=== PATIENT | female | born 1955 | race Caucasian/White ===

== ENCOUNTER 2025-05-19 09:08 | Inpatient (IN) | payer OTHER ==
[~2025-05-19] VITALS: Ht 167.6 cm; Wt 72.7 kg
[2025-05-19 09:31] LABS: Hematocrit 39.6 % (36.0-46.0); Hemoglobin 13.5 g/dL (12.2-16.2); Mean Corpuscular Hemoglobin 30.0 pg (28.0-32.0); Mean Corpuscular Volume 87.8 fL (80.0-100.0); Nucleated Red Blood Cells % 0.0 %
[2025-05-19 09:41] LABS: Potassium 3.8 mmol/L (3.5-5.1); Sodium 144 mmol/L (136-145)
[2025-05-19 09:42] LABS: Carbon Dioxide 29 mmol/L (20-31)
[2025-05-19 09:43] LABS: Calcium 9.5 mg/dL (8.7-10.4)
[2025-05-19 09:47] LABS: BUN/Creatinine Ratio 15.1 (10.0-20.0); Blood Urea Nitrogen 14 mg/dL (9-23); Glucose 86 mg/dL (74-106)
[2025-05-19 09:54] LABS: Anion Gap 9 (5-15); Chloride 106 mmol/L (98-107)
--- NOTE | 2025-05-19 09:54 | ED.PDOC ---
HPI Comments 69 year old female with PMHx HTN presents to the ED with a chief complaint of chest pain onset 2 days. Patient states she has been experiencing intermittent, LT sided, non-radiating chest pain, described as a dull pain. Patient states she had stress test done about 5 years ago, was negative, has not seen Chemistry Specialist. Patient checked BP at home, was elevated, came to ED. Upon ED arrival AMIRAH was 165/96. Denies fever, chills, nausea, vomiting, diarrhea, abdominal pain, short ness of breath, headache, dizziness, blurred vision, numbness/tingling. No other symptoms or modifying factors present at this time. Chief Complaint: Chest Pain Time Seen by MD: 09:35 Reviewed Notes: Medications, Allergies Allergies: Coded Allergies: Latex (Verified Allergy, Unknown, 05/19/25) Sulfa Drugs (Verified Adverse Reaction, Unknown, 10/11/09) Information Source: Patient Mode of Arrival: Ambulatory Severity: Moderate Timing: Days Duration: Since onset Prehospital treatment: None Location: Chest (L) Radiation: No Radiation Quality: Other (dull) Onset: At Rest Cardiac Risk Factors: HTN PE Risk Factors: None History of: None Modifying Factors: Nothing Past Medical History PAST MEDICAL HISTORY: HTN Surgical History: Denies all surgeries ADJUSTER AND INSPECTOR History: No Pertinent ADJUSTER AND INSPECTOR History Family History Family History: Reviewed,noncontributory to illness, No family hx of Cancer, No family hx of DM, No family hx of Heart cassie, No family hx of HTN, No family hx ofKidney cassie, No family hx of Liver cassie, No family hx of Lung cassie, No family hx of Stroke Social History Smoker: Non-Smoker Alcohol: Denies ETOH Use Drugs: Denies Drug Use Lives In: Home Constitutional: denies: chills, diaphoresis, fatigue, fever, malaise, sweats, weakness, others EENTM: denies: blurred vision, double vision, ear bleeding, ear discharge, ear drainage, ear pain, ear ringing, eye pain, eye redness, hearing loss, mouth pain, mouth swelling, nasal discharge, nose bleeding, nose congestion, nose pain, photophobia, tearing, throat pain, throat swelling, voice changes, others Respiratory: reports: cough; denies: hemoptysis, orthopnea, SOB at rest, shortness of breath, SOB with excertion, stridor, wheezing, others Cardiovascular: reports: chest pain, others (hypertension); denies: dizzy spells, diaphoresis, Dyspnea on exertion, edema, irregular heart beat, left arm pain, lightheadedness, palpitations, PND, syncope Gastrointestinal: denies: abdomen distended, abdominal pain, blood streaked bowels, constipated, diarrhea, dysphagia, difficulty swallowing, hematemesis, melena, nausea, poor appetite, poor fluid intake, rectal bleeding, rectal pain, vomiting, others Neurological: denies: dizziness, fainting, headache, left sided numbness, left sided weakness, numbness, paresthesia, pre-existing deficit, right sided numbness, right sided weakness, seizure, speech problems, tingling, tremors, weakness, others Musculoskeletal: denies: back pain, gout, joint pain, joint swelling, muscle pain, muscle stiffness, neck pain, others Integumetry: denies: bruises, change in color, change in hair/nails, dryness, laceration, lesions, lumps, rash, wounds, others Allergic/Immunocompromised: denies: Difficulty Healing, Frequent Infections, Hives, Itching, others Hematologic/Lymphatic: denies: anemia, blood clots, easy bleeding, easy bruising, swollen glands, others Endocrine: denies: excessive hunger, excessive sweating, excessive thirst, excessive urination, flushing, intolerance to cold, intolerance to heat, unexplained weight gain, unexplained weight loss, others Psychiatric: denies: anxiety, bipolar disorder, depression, hopeless, panic disorder, schizophrenia, sleepless, suicidal, others All Other Systems: Reviewed and Negative Physical Exam General Appearance: Normal HEENT: Normal ENT Inspection, Pharynx Normal, TMs Normal Neck: Full Range of Motion, Non-Tender, Normal, Normal Inspection Respiratory: Chest Non-Tender, Lungs Clear, No Accessory Muscle Use, No Respiratory Distress, Normal Breath Sounds Cardiovascular: No Edema, No JVD, No Murmur, No Gallop, Normal Peripheral Pulses, Regular Rate/Rhythm Breast Exam: Deferred Gastrointestinal: No Organomegaly, Non Tender, No Pulsatile Mass, Normal Bowel Sounds, Soft Genitalia: Deferred Pelvic: Deferred Rectal: Deferred Extremities: No calf tenderness, Normal capillary refill, Normal inspection, Normal range of motion, Non-tender, No pedal edema Musculoskeletal : Apperance: Normal Neurologic: Alert, cable swager II-XII nml as Tested, No Motor Deficits, Normal Affect, Normal Mood, No Sensory Deficits Cerebellar Function: Normal Reflexes: Normal Skin: Dry, Normal Color, Warm Lymphatic: No Adenopathy Was a procedure done? Was a procedure done?: No X-Ray, Labs, Meds, VS Vital Signs Date Time Temp Pulse Resp B/P (MAP) Pulse Ox O2 Delivery O2 Flow Rate FiO2 05/19/25 10:04 55 05/19/25 09:15 61 05/19/25 09:14 97.5 71 18 165/96 97 97.5 Lab Test 05/19/25 09:20 Range/Units White Blood Count 4.4 4.4-10.8 10^3/uL Red Blood Count 4.51 4.0-5.20 10^6/uL Hemoglobin 13.5 12.2-16.2 g/dL Hematocrit 39.6 36.0-46.0 % Mean Corpuscular Volume 87.8 80.0-100.0 fL Mean Corpuscular Hemoglobin 30.0 28.0-32.0 pg Mean Corpuscular Hemoglobin Concent 34.1 32.0-36.0 g/dL Red Cell Distribution Width 13.2 11.8-14.3 % Platelet Count 253 140-450 10^3/uL Mean Platelet Volume 8.1 6.9-10.8 fL Neutrophils (%) (Auto) 47.7 37.0-80.0 % Lymphocytes (%) (Auto) 42.7 10.0-50.0 % Monocytes (%) (Auto) 7.4 0.0-12.0 % Eosinophils (%) (Auto) 0.9 0.0-7.0 % Basophils (%) (Auto) 1.3 0.0-2.0 % Neutrophils # (Auto) 2.1 1.6-8.6 10 ^3/uL Lymphocytes # (Auto) 1.9 0.4-5.4 10 ^3/uL Monocytes # (Auto) 0.3 0-1.3 10 ^3/uL Eosinophils # (Auto) 0 0-0.8 10 ^3/uL Basophils # (Auto) 0.1 0-0.2 10 ^3/uL Nucleated Red Blood Cells 0.0 % Sodium Level 144 136-145 mmol/L Potassium Level 3.8 3.5-5.1 mmol/L Chloride Level 106 98-107 mmol/L Carbon Dioxide Level 29 20-31 mmol/L Anion Gap 9 5-15 Blood Urea Nitrogen 14 9-23 mg/dL Creatinine 0.93 0.550-1.02 mg/dL Glomerular Filtration Rate Calc 67 >90 mL/min BUN/Creatinine Ratio 15.1 10.0-20.0 Serum Glucose 86 74-106 mg/dL Calcium Level 9.5 8.7-10.4 mg/dL Troponin I High Sensitivity 5 </=34 ng/L [place] [address] Ph: [phone] DIAGNOSTIC IMAGING Diagnostic Imaging Report : [id number] Signed PATIENT: REINA REY ACCT: [id number] UNIT: [id number] : 1955 LOC: ER ROOM / BED: / AGE / SEX: 69 / F ADM STATUS: REG ER SERVICE 8 ORDERING PHYSICIAN: FAUSTINA TOBIAS MD PROCEDURE(s): CXRP - CHEST PORTABLE REASON: cp ORDER NUMBER(s): [id number], ACCESSION NUMBER(s): [id number] EXAM: XY CHEST PORTABLE Indication: cp Technique: Single frontal view of the chest was obtained Comparison: None FINDINGS: Lines and Tubes: None Lungs: No focal consolidation. Pleura: No effusion. No pneumothorax. Cardiomediastinal contours: Unremarkable Bones: No acute osseous abnormality. IMPRESSION: No acute cardiopulmonary disease. ATED BY: RAGHU ROQUE MD DICTATED DATE/TIME: 05/19/251011 SIGNED BY: RAGHU ROQUE MD SIGNED DATE/TIME: 05/19/251011 CC: Time of 1ST Reevaluation: 10:05 Reevaluation 1ST: Unchanged Patient Education/Counseling: Diagnosis, Treatment, Prognosis Family Education/Counseling: No Family Present SEPSIS Sepsis Screen Date sepsis recognized/suspect: May 19, 2025 Time Sepsis recognized/suspect: 0910 Recent Procedure: No On Antibiotic Therapy: No Respiratory Rate >20: No Heart Rate >90: No Temp<36 C (96.8 F) or >38.3 C: No SBP <90 or MAP <65 mmHG: No New Acute Mental Status Change: No Is the patient on CPAP, BIPAP,: No Physician Orders Electrocardigram (05/19/25 09:10) Electrocardigram (05/19/25 10:10) Electrocardigram (05/19/25 12:10) Troponin-I Hs (05/19/25 10:10) Troponin-I Hs (05/19/25 12:10) Chest Portable (05/19/25 09:19) Vital Signs Date Time Temp Pulse Resp B/P (MAP) Pulse Ox O2 Delivery O2 Flow Rate FiO2 05/19/25 10:04 55 05/19/25 09:15 61 05/19/25 09:14 97.5 71 18 165/96 97 97.5 Laboratory Tests Test 05/19/25 09:20 White Blood Count 4.4 10^3/uL (4.4-10.8) Critical Care Note Critical Care Time?: No Stability Stability form required: No Heart Score Heart Score: Heart Score Response (Comments) Value History N/A 0 EKG N/A 0 Age N/A 0 Risk Factors N/A 0 Troponin N/A 0 Total 0 I personally scribed for FAUSTINA TOBIAS MD ([email or web address]) on 05/19/25 at 09:54. Electronically submitted by Zoya Abdul ([email or web address]). I personally scribed for FAUSTINA TOBIAS MD ([email or web address]) on 05/19/25 at 10:25. Electronically submitted by Zoya Abdul [email or web address]). FAUSTINA TOBIAS MD May 19, 2025 09:54
--- NOTE | 2025-05-19 10:15 | DVH ---
EXAM: XY CHEST PORTABLE Indication: cp Technique: Single frontal view of the chest was obtained Comparison: None FINDINGS: Lines and Tubes: None Lungs: No focal consolidation. Pleura: No effusion. No pneumothorax. Cardiomediastinal contours: Unremarkable Bones: No acute osseous abnormality. IMPRESSION: No acute cardiopulmonary disease.
[2025-05-19] MEDS ORDERED: DOCUSATE SOD 100 MG CAP PO PRN (14:45)
[2025-05-19] MEDS: SODIUM CHLORIDE 0.9% 1,000 ML IV SCH (14:45)
[2025-05-19] MEDS ORDERED: ONDANSETRON HCL 4 MG/2 ML VIAL IV PRN (14:45)
[2025-05-19] MEDS ORDERED: NITROGLYCERIN 0.4 MG SL TAB SL PRN (14:45)
[2025-05-19] MEDS ORDERED: MORPHINE SULFATE INJ 2 MG/ml SYRG IV PRN ×2 (14:45)
[2025-05-19] MEDS ORDERED: TEMAZEPAM 15 MG CAP PO PRN (14:45)
--- NOTE | 2025-05-19 15:16 | DVHHPRES ---
History of Present Illness Resident Creating Document: CHERELLE MANNING RESIDENT History of Present Illness Ms. Tejeda, a 69-year-old female with a history of CAD, MT s/p stent in 2009, hypertension, anxiety, depression, severe dyslipidemia presented to the ED with intermittent, left-sided, non-radiating dull chest pain that began two days ago. She has modifying factors and denies associated symptoms including fever, chills, nausea, vomiting, diarrhea, abdominal pain, shortness of breath, headache, dizziness, blurred vision, or neurological complaints. She notes a prior negative stress test five years ago and has not followed up with a skein winding operator since. On arrival, her blood pressure was 165/96. She has allergies to latex and sulfa drugs, no surgical history, and arrived ambulatory without prehospital treatment. Previously followed Dr. Parsons, last stress test 5 years ago at [place], not available for interpretation. Patient is under stress due to her is diagnosed with colon cancer. Past Medical History: HTN, CAD, Anxiety, Depression, Dyslipidemia on Repatha. Surgical History: Denies all surgeries ACIDIZER WATER WELL History: No Pertinent ACIDIZER WATER WELL History Social History: distant history of smoking, denies active smoking, drugs or alcohol use. lives at home with family. Review of Systems Constitutional: No: Fever, Chills, Sweats, Weakness, Malaise, Other Eyes: No: Pain, Vision change, Conjunctivae inflammation, Eyelid inflammation, Other, Redness ENT: No: Ear pain, Ear discharge, Nose pain, Nose discharge, Nose congestion, Mouth pain, Mouth swelling, Throat pain, Throat swelling, Other Respiratory: No: Cough, Dry, Shortness of breath, SOB with excertion, Wheezing, Hemoptysis, Pleuritic Pain, Sputum, Wheezing, Other Cardiovascular: Chest Pain Gastrointestinal: No: Nausea, Vomiting, Abdominal Pain, Diarrhea, Constipation, Melena, Hematochezia, Other Musculoskeletal: No: other, neck pain, shoulder pain, arm pain, back pain, hand pain, leg pain, foot pain Skin: No: Rash, Lesions, Jaundice, Bruising, Other Neurological: No: Weakness, Numbness, Incoordination, Change in speech, Co nfusion, Seizures, Other Allergies: Coded Allergies: Latex (Verified Allergy, Unknown, 05/19/25) Sulfa Drugs (Verified Adverse Reaction, Unknown, 10/11/09) Medications Current Medications Medications Dose Ordered Sig/Ping Route Start Time Stop Time Status Last Admin Dose Admin Sodium Chloride 1,000 ml @ 60 mls/hr [id number] IV 05/19/25 14:45 Temazepam 15 mg QHSP PRN PO 05/19/25 14:45 Ondansetron HCl 4 mg Q4HP PRN IV 05/19/25 14:45 Docusate Sodium 100 mg BIDPRN PRN PO 05/19/25 14:45 Acetaminophen 650 mg Q6HP PRN PO 05/19/25 14:45 Morphine Sulfate 2 mg Q4HPRN PRN IV 05/19/25 14:45 Enoxaparin Sodium 40 mg DAILY SC 05/19/25 14:45 Nitroglycerin 0.4 mg Q5MINP PRN SL 05/19/25 14:45 Morphine Sulfate 2 mg Q30M PRN IV 05/19/25 14:45 Bupropion HCl 100 mg DAILY PO 05/19/25 15:15 UNV Sertraline HCl 100 mg DAILY PO 05/19/25 15:15 UNV EZETIMIBE 10 mg DAILY PO 05/20/25 10:00 UNV Losartan Potassium 25 mg DAILY PO 05/20/25 10:00 UNV Exam Vital Signs Vital Signs Date Time Temp Pulse Resp B/P (MAP) Pulse Ox O2 Delivery O2 Flow Rate FiO2 05/19/25 12:56 97.5 66 16 144/93 (110) 98 97.5 General Appearance: Alert, Oriented X3, Cooperative, mild distress HEENT: Atraumatic, PERRLA, EOMI, Mucous membr. moist/pink Respiratory: Clear to auscultation, Normal air movement Cardiovascular: Regular rate, Normal S1, Normal S2, No murmurs Abdominal: Normal bowel sounds, Soft, No tenderness, No hepatospenomegaly, No masses Extremities: No clubbing, No cyanosis, No edema, Normal pulses, No tenderness/swelling Skin: No rashes, No breakdown, No significant lesion Neuro: Normal gait, Normal speech, Strength at 5/5 X4 ext, Normal tone, Sensation intact, Cranial nerves 3-12 NL, Reflexes 2+ Psych/Mental Status: Mental status NL, Mood NL Labs/Xrays Labs Test 05/19/25 13:01 05/19/25 09:20 Range/Units Troponin I High Sensitivity 4 </=34 ng/L White Blood Count 4.4 4.4-10.8 10^3/uL Red Blood Count 4.51 4.0-5.20 10^6/uL Hemoglobin 13.5 12.2-16.2 g/dL Hematocrit 39.6 36.0-46.0 % Mean Corpuscular Volume 87.8 80.0-100.0 fL Mean Corpuscular Hemoglobin 30.0 28.0-32.0 pg Mean Corpuscular Hemoglobin Concent 34.1 32.0-36.0 g/dL Red Cell Distribution Width 13.2 11.8-14.3 % Platelet Count 253 140-450 10^3/uL Mean Platelet Volume 8.1 6.9-10.8 fL Neutrophils (%) (Auto) 47.7 37.0-80.0 % Lymphocytes (%) (Auto) 42.7 10.0-50.0 % Monocytes (%) (Auto) 7.4 0.0-12.0 % Eosinophils (%) (Auto) 0.9 0.0-7.0 % Basophils (%) (Auto) 1.3 0.0-2.0 % Neutrophils # (Auto) 2.1 1.6-8.6 10 ^3/uL Lymphocytes # (Auto) 1.9 0.4-5.4 10 ^3/uL Monocytes # (Auto) 0.3 0-1.3 10 ^3/uL Eosinophils # (Auto) 0 0-0.8 10 ^3/uL Basophils # (Auto) 0.1 0-0.2 10 ^3/uL Nucleated Red Blood Cells 0.0 % Sodium Level 144 136-145 mmol/L Potassium Level 3.8 3.5-5.1 mmol/L Chloride Level 106 98-107 mmol/L Carbon Dioxide Level 29 20-31 mmol/L Anion Gap 9 5-15 Blood Urea Nitrogen 14 9-23 mg/dL Creatinine 0.93 0.550-1.02 mg/dL Glomerular Filtration Rate Calc 67 >90 mL/min BUN/Creatinine Ratio 15.1 10.0-20.0 Serum Glucose 86 74-106 mg/dL Calcium Level 9.5 8.7-10.4 mg/dL SEPSIS Sepsis Screen Date sepsis recognized/suspect: May 19, 2025 Time Sepsis recognized/suspect: 0910 Recent Procedure: No On Antibiotic Therapy: No Respiratory Rate >20: No Heart Rate >90: No Temp<36 C (96.8 F) or >38.3 C: No SBP <90 or MAP <65 mmHG: No New Acute Mental Status Change: No Is the patient on CPAP, BIPAP,: No Physician Orders Electrocardigram (05/19/25 09:10) Electrocardigram (05/19/25 10:10) Electrocardigram (05/19/25 12:10) Chest Portable (05/19/25 09:19) Admit (05/19/25 14:43) Allergies (05/19/25 14:43) Code Status (05/19/25 14:43) Sodium Chloride 0.9% (05/19/25 14:45) Temazepam (Restoril) (05/19/25 14:45) Ondansetron Hcl (Zofran) (05/19/25 14:45) Docusate Sodium Capsule (Colace Capsule) (05/19/25 14:45) Complete Blood Count (05/20/25 04:00) Comprehensive Metabolic Panel (05/20/25 04:00) Npo (Nothing By Mouth) Diet (05/19/25 Dinner) Echo 2d Mode Cardiac Dop (05/19/25 14:43) Condition: Serious (05/19/25 14:43) Acetaminophen Tablet (Tylenol Tablet) (05/19/25 14:45) Bedrest With Bathroom Privileg (05/19/25 14:43) Morphine Sulfate Injection (05/19/25 14:45) Enoxaparin Sodium (Lovenox) (05/19/25 14:45) Nitroglycerin Sublingual (Ntrostat Subli (05/19/25 14:45) Morphine Sulfate Injection (05/19/25 14:45) Oxygen By Nasal Cannula (05/19/25 14:43) Stat Ekg For Chest Pain (05/19/25 14:43) Notify Md Of Changes From Base (05/19/25 14:43) Tag Stringer For 24 Hours (05/19/25 14:43) Emergency Dysrhythmia Protocol (05/19/25 14:43) Rhythm Strips Once Every Shift (05/19/25 14:43) Urinalysis (05/19/25 15:02) B-Type Natriuretic Peptide (05/19/25 15:02) Erythrocyte Sedimentation Rate (05/19/25 15:02) C-Reactive Protein (05/19/25 15:02) Drug Screen (05/19/25 15:02) Covid19 Antigen Yolanda (05/19/25 ) Rapid Influenza A&B (05/19/25 15:02) Bupropion Tablet (Wellbutrin Tablet) (05/19/25 15:15) Sertraline Hcl (Zoloft) (05/19/25 15:15) Ezetimibe (Zetia) (05/20/25 10:00) Ezetimibe (Zetia) (05/19/25 15:15) Losartan Tablet (Cozaar Tablet) (05/20/25 10:00) Vital Signs Date Time Temp Pulse Resp B/P (MAP) Pulse Ox O2 Delivery O2 Flow Rate FiO2 05/19/25 12:56 97.5 66 16 144/93 (110) 98 97.5 05/19/25 12:17 60 05/19/25 10:04 55 05/19/25 09:15 61 05/19/25 09:14 97.5 71 18 165/96 97 97.5 Laboratory Tests Test 05/19/25 09:20 White Blood Count 4.4 10^3/uL (4.4-10.8) Assessment/Plan Assessment/Plan #Acute chest pain: unstable angina, typical chest pain with high risk factors. BNP, ekg, trops trend, telemetry, esr, crp, Echo and UDS. close monitoring, CXR, viral panel to check. I will restart aspirin and check hepatic function prior to statin. #Uncontrolled essential HTN: bp at presentation 165/96: target bp 10/90 or below. Home medication losartan 25 mg daily, restarted. #CAD with h/o MT in 2009: was seen by Dr. Hanna and Dr. Guerrero The patient was with 95% narrowing of the proximal RCA status post angioplasty with stent placement with a 3.0 x 18 mm PROMUS stent with less than 10% residual stenosis via femoral approach. #Dyslipidemia: on Repatha weekly, ezetimibe 10 mg daily #Anxiety and depression: bupropion er 100 mg daily, aripiprazole 5 mg daily and sertraline 100 mg daily, continue home medications. #Allergy to latex and sulfa drugs: continue avoidance. #Surgical hx of b/l tubal ligation, left ovarian cyst removal. #Prior history of 10+ years of smoking 35 years ago. PUD prophylaxis: protonix 40mg iv daily DVT prophylaxis: SCDs only. Barriers to discharge: Medical diagnosis and management in progress. Patient lives with family. Independent for ADL. PT and SW consult as needed for safe discharge for dizziness. PCP: Dr. Washington/Alejandro Specialist Relevant To Admission: N/A, Cardiology previously followed with Dr. Harding. Case discussed with Dr. Melo. Code Status: Full Code. Discussion needed total 29 minutes bedside. Plan discussed with: Patient My Orders Orders - CHERELLE MANNING RESIDENT Procedure Category Date Status Time Admit ADMIT 05/19/25 Transmitted 14:43 Allergies LEXX 05/19/25 In Process 14:43 Code Status CODE 05/19/25 Transmitted 14:43 Sodium Chloride 0.9% PHA 05/19/25 In Process 14:45 Temazepam (Restoril) PHA 05/19/25 In Process 14:45 Ondansetron Hcl PHA 05/19/25 In Process (Zofran) 14:45 Docusate Sodium PHA 05/19/25 In Process Capsule (Colace 14:45 Complete Blood Count LAB 05/20/25 Verified 04:00 Comprehensive LAB 05/20/25 Verified Metabolic Panel 04:00 Npo (Nothing By DIET 05/19/25 Transmitted Mouth) Diet Dinner Echo 2d Mode Cardiac US 05/19/25 Logged DOP 14:43 Condition: Serious LEXX 05/19/25 In Process 14:43 Acetaminophen Tablet PHA 05/19/25 In Process (Tylenol Tablet) 14:45 Bedrest With Bathroom LEXX 05/19/25 In Process Privileg 14:43 Morphine Sulfate PHA 05/19/25 In Process Injection 14:45 Enoxaparin Sodium PHA 05/19/25 In Process (Lovenox) 14:45 Nitroglycerin PHA 05/19/25 In Process Sublingual (Ntrostat 14:45 Morphine Sulfate PHA 05/19/25 In Process Injection 14:45 Oxygen By Nasal RT 05/19/25 Transmitted Cannula 14:43 Stat Ekg For Chest LEXX 05/19/25 In Process Pain 14:43 Notify Md Of Changes LEXX 05/19/25 In Process From Base 14:43 Tag Stringer For [facility] 05/19/25 In Process 24 Hours 14:43 Emergency Dysrhythmia [facility] 05/19/25 In Process Protocol 14:43 Rhythm Strips Once [facility] 05/19/25 In Process Every Shift 14:43 Urinalysis LAB 05/19/25 Logged 15:02 B-Type Natriuretic LAB 05/19/25 Logged Peptide 15:02 Erythrocyte LAB 05/19/25 Logged Sedimentation Rate 15:02 C-Reactive Protein LAB 05/19/25 Logged 15:02 Drug Screen LAB 05/19/25 Logged 15:02 Covid19 Antigen Yolanda LAB 05/19/25 Logged Rapid Influenza A&B LAB 05/19/25 Logged 15:02 Bupropion Tablet PHA 05/19/25 Logged (Wellbutrin Tablet) 15:15 Sertraline Hcl PHA 05/19/25 Logged (Zoloft) 15:15 Ezetimibe (Zetia) PHA 05/20/25 Logged 10:00 Ezetimibe (Zetia) PHA 05/19/25 Logged 15:15 Losartan Tablet PHA 05/20/25 Logged (Cozaar Tablet) 10:00 Date of Service: May 19, 2025 Billing Provider: DOMO MELO MD Common Visit Codes: 19912-ESQYQHS INP/OBS CARE (HIGH) Secondary Visit Codes: 94924-JCCLOLIX CARE PLAN 30 MINUTES CHERELLE MANNING RESIDENT May 19, 2025 15:16
[2025-05-19 16:40] LABS: Alanine Aminotransferase 31.0 U/L (7-40); Albumin 4.4 g/dL (3.2-4.8); Alkaline Phosphatase 98.0 U/L (46-116); Total Protein 6.8 g/dL (5.7-8.2)
[2025-05-19 16:41] LABS: Bilirubin, Direct 0.1 mg/dL (<0.3); Bilirubin, Total 0.4 mg/dL (0.2-1.0)
[2025-05-19 18:59] LABS: COVID19 ANTIGEN SOFIA FIA NEGATIVE (NEGATIVE)
[2025-05-19] MEDS: PANTOPRAZOLE 40 MG/10 ML VIAL INJ IV ONE (19:50)
[2025-05-19] MEDS: SERTRALINE HCL 50 MG TAB PO SCH (19:50)
[2025-05-19] MEDS: ENOXAPARIN SOD 40 MG/0.4 ML SYRINGE SC SCH (19:50)
[2025-05-19 20:48] VITALS: BP 158/85; PULSE 56; RESP 20; TEMP 97.7; O2SAT 96
[2025-05-19] MEDS ORDERED: SERT-206 PO (20:56)
[2025-05-19] MEDS ORDERED: EZET10TA22 PO (20:56)
[2025-05-19] MEDS ORDERED: BUPR150T8 PO (20:56)
[2025-05-19] MEDS ORDERED: LOSA-533 PO (20:56)
[2025-05-19] MEDS ORDERED: ASPI81CH49 PO (20:56)
[2025-05-19 21:00] VITALS: BP 158/85; PULSE 56; RESP 20; TEMP 97.7; O2SAT 96
[2025-05-19] MEDS: EZETIMIBE 10 MG TAB PO ONE (21:48)
[2025-05-19] MEDS: ATORVASTATIN 20 MG TAB PO SCH (21:48)
[2025-05-20] VITALS (7 sets, daily range): BP systolic 127–137; BP diastolic 80–91; PULSE 53–67; RESP 16–18; TEMP 97.4–98.6; O2SAT 95–98
[2025-05-20 06:35] LABS: Hematocrit 38.7 % (36.0-46.0); Hemoglobin 13.1 g/dL (12.2-16.2); Mean Corpuscular Hemoglobin 30.0 pg (28.0-32.0); Mean Corpuscular Volume 88.7 fL (80.0-100.0); Nucleated Red Blood Cells % 0.1 %
[2025-05-20 06:50] LABS: Alanine Aminotransferase 28 U/L (7-40); Albumin 4.2 g/dL (3.2-4.8); Alkaline Phosphatase 92 U/L (46-116); Anion Gap 11 (5-15); BUN/Creatinine Ratio 14.9 (10.0-20.0); Blood Urea Nitrogen 14 mg/dL (9-23); Calcium 9.4 mg/dL (8.7-10.4); Carbon Dioxide 29 mmol/L (20-31); Cholesterol 152 mg/dL (< 200); Glucose 85 mg/dL (74-106); HDL Cholesterol 59 mg/dL (40-59); Potassium 4.0 mmol/L (3.5-5.1); Total Protein 6.6 g/dL (5.7-8.2)
[2025-05-20 06:51] LABS: Bilirubin, Total 0.3 mg/dL (0.2-1.0)
[2025-05-20 06:57] LABS: Chloride 109 mmol/L (98-107); Sodium 149 mmol/L (136-145); Triglycerides 163 mg/dL (< 150)
--- NOTE | 2025-05-20 10:01 | ECG ---
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
--- NOTE | 2025-05-20 10:02 | ECG ---
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
--- NOTE | 2025-05-20 10:17 | ECG ---
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
[2025-05-20] MEDS: PANTOPRAZOLE 40 MG/10 ML VIAL INJ IV SCH (11:17)
[2025-05-20] MEDS: EZETIMIBE 10 MG TAB PO SCH (11:18)
[2025-05-20] MEDS: LOSARTAN POTASSIUM 25 MG TAB PO SCH (11:18)
--- NOTE | 2025-05-20 11:52 | DVHPN2 ---
Reviewed: Care Plan, H&P, Labs, Medications, Previous Orders, Radiology Changes from previous H/P or p: No Changes Eyes: No Pain, No Vision change, No Conjunctivae inflammation, No Eyelid inflammation, No Other, No Redness ENT: No Ear pain, No Ear discharge, No Nose pain, No Nose discharge, No Nose congestion, No Mouth pain, No Mouth swelling, No Throat pain, No Throat swelling, No Other Cardiovascular: Chest Pain Respiratory: No Cough, No Dry, No Shortness of breath, No SOB with excertion, No Wheezing, No Hemoptysis, No Pleuritic Pain, No Sputum, No Other Gastrointestinal: No Nausea, No Vomiting, No Abdominal Pain, No Diarrhea, No Constipation, No Melena, No Hematochezia, No Other Musculoskeletal: No other, No neck pain, No shoulder pain, No arm pain, No back pain, No hand pain, No leg pain, No foot pain Skin: No Rash, No Lesions, No Jaundice, No Bruising, No Other Objective Vitals Vital Signs Date Time Temp Pulse Resp B/P (MAP) Pulse Ox O2 Delivery O2 Flow Rate FiO2 05/20/25 11:18 127/85 05/20/25 08:49 98.6 56 16 97 98.6 05/19/25 20:48 Room Air* 0 21 Intake/Output Intake and Output 05/20/25 07:00 Intake Total 200 ml Balance 200 ml Intake Oral 200 ml # Voids 1 Medications Current Medications Medications Dose Ordered Sig/Ping Route Start Time Stop Time Status Last Admin Dose Admin Sodium Chloride 1,000 ml @ 60 mls/hr [id number] IV 05/19/25 14:45 Temazepam 15 mg QHSP PRN PO 05/19/25 14:45 Ondansetron HCl 4 mg Q4HP PRN IV 05/19/25 14:45 Docusate Sodium 100 mg BIDPRN PRN PO 05/19/25 14:45 Acetaminophen 650 mg Q6HP PRN PO 05/19/25 14:45 Morphine Sulfate 2 mg Q4HPRN PRN IV 05/19/25 14:45 Enoxaparin Sodium 40 mg DAILY SC 05/19/25 14:45 05/20/25 11:19 40 MG Nitroglycerin 0.4 mg Q5MINP PRN SL 05/19/25 14:45 Morphine Sulfate 2 mg Q30M PRN IV 05/19/25 14:45 Bupropion HCl 100 mg DAILY PO 05/19/25 15:15 05/20/25 11:18 100 MG Sertraline HCl 100 mg DAILY PO 05/19/25 15:15 05/20/25 11:17 100 MG EZETIMIBE 10 mg DAILY PO 05/20/25 10:00 05/20/25 11:18 10 MG Losartan Potassium 25 mg DAILY PO 05/20/25 10:00 05/20/25 11:18 25 MG Pantoprazole Sodium 40 mg DAILY IV 05/20/25 10:00 05/20/25 11:17 40 MG Aspirin 81 mg DAILY PO 05/20/25 10:00 05/20/25 11:17 81 MG Atorvastatin Calcium 40 mg HS PO 05/19/25 22:00 05/19/25 21:48 40 MG Laboratory Results Laboratory Tests 05/20/25 05:09 Chemistry Test 05/19/25 13:01 05/20/25 05:09 Albumin 4.4 g/dL (3.2-4.8) 4.2 g/dL (3.2-4.8) Total Protein 6.8 g/dL (5.7-8.2) 6.6 g/dL (5.7-8.2) Calcium Level 9.4 mg/dL (8.7-10.4) Lipid panel Test 05/20/25 05:09 Cholesterol Level 152 mg/dL (< 200) HDL Cholesterol 59 mg/dL (40-59) Triglycerides Level 163 mg/dL (< 150) H LFT Test 05/19/25 13:01 05/20/25 05:09 Alanine Aminotransferase (ALT) 31 U/L (7-40) 28 U/L (7-40) Alkaline Phosphatase 98 U/L (46-116) 92 U/L (46-116) Aspartate Amino Transferase (AST) 24 U/L (13-40) 22 U/L (13-40) Direct Bilirubin 0.1 mg/dL (<0.3) Total Bilirubin 0.4 mg/dL (0.2-1.0) 0.3 mg/dL (0.2-1.0) Labs and/or images reviewed: Labs reviewed by me, Image(s) reviewed by me Assessment/Plan Assessment/Plan Acute Chest pain, troponin negative x3, treatment per ACS protocol, cardiology consult Uncontrolled hypertension History of coronary artery disease with a OR in 2010 with a stenting of proximal RCA Hypercholesterolemia Anxiety Depression History of Smoking for 10 years 35 years ago Plan discussed with: Patient Date of Service: May 20, 2025 Billing Provider: SANDRA MALONE MD Common Visit Codes: [id number] INP/OBS CARE(HIGH) SANDRA MALONE MD May 20, 2025 11:52
--- NOTE | 2025-05-20 13:52 | DVHCONRES ---
Date Seen: May 20, 2025 Resident Creating Document: DAVID ARELLANO RESIDENT Referring Physician DR Luis Eduardo Duran Reason for Consultation Chest pain History of Present Illness Ms. Tejeda, a 69-year-old female with a history of CAD, [place] s/p stent in RCA 2009, hypertension, anxiety, depression, severe dyslipidemia presented to the ED with intermittent, left-sided, non-radiating dull chest pain that began two days ago. She has modifying factors and denies associated symptoms including fever, chills, nausea, vomiting, diarrhea, abdominal pain, shortness of breath, headache, dizziness, blurred vision, or neurological complaints. 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 On arrival, her blood pressure was 165/96. She has allergies to latex and sulfa drugs, no surgical history, and arrived ambulatory without prehospital treatment. Previously followed Dr. Parsons, last stress test 5 years ago at [place], not available for interpretation. Patient is under stress due to her is diagnosed with colon cancer. Past Medical History: HTN, CAD, Anxiety, Depression, Dyslipidemia on Repatha. Surgical History: Denies all surgeries CABLE MAKER History: No Pertinent CABLE MAKER History Social History: distant history of smoking, denies active smoking, drugs or alcohol use. lives at home with family. ROS: Patient seen and examined at the bedside. Patient is having chest pain but improved since admission. Family History: FH: colon cancer Allergies: Coded Allergies: Latex (Verified Allergy, Unknown, 05/19/25) Sulfa Drugs (Verified Adverse Reaction, Unknown, 10/11/09) Home Meds Reported Medications Bupropion Hcl (Wellbutrin Sr) 150 Mg Tab, 1 TAB PO BID, #60 TAB 5 Refills 05/19/25 Ezetimibe (Zetia) 10 Mg Tab, 1 TAB PO DAILY, #30 TAB 5 Refills 05/19/25 Losartan Potassium (Losartan Potassium) 25 Mg Tab, 25 MG PO DAILY for 30 Days, MG 05/19/25 Sertraline Hcl (Sertraline Hcl) 50 Mg Tab, 50 MG PO DAILY for 30 Days, MG 05/19/25 Aspirin (Aspirin) 81 Mg Chw, 81 MG PO, TAB.CHEW 05/19/25 Current Medications Current Medications Medications (Trade) Dose Ordered Sig/Ping Route PRN Reason Start Time Stop Time Status Last Admin Sodium Chloride 1,000 ml @ 60 mls/hr [id number] IV 05/19/25 14:45 Temazepam (Restoril) 15 mg QHSP PRN PO FOR INSOMNIA 05/19/25 14:45 Ondansetron HCl (Zofran) 4 mg Q4HP PRN IV NAUSEA / VOMITING 05/19/25 14:45 Docusate Sodium (Colace Capsule) 100 mg BIDPRN PRN PO FOR CONSTIPATION 05/19/25 14:45 Acetaminophen (Tylenol Tablet) 650 mg Q6HP PRN PO PAIN SCALE 1-3 OR TEMP>100.4 05/19/25 14:45 Morphine Sulfate 2 mg Q4HPRN PRN IV SEVERE PAIN (7-10 PAIN SCALE) 05/19/25 14:45 Enoxaparin Sodium (Lovenox) 40 mg DAILY SC 05/19/25 14:45 05/20/25 11:19 Nitroglycerin (Ntrostat Sublingual) 0.4 mg Q5MINP PRN SL FOR CHEST PAIN 05/19/25 14:45 Morphine Sulfate 2 mg Q30M PRN IV FOR CHEST PAIN 05/19/25 14:45 Bupropion HCl (Wellbutrin Tablet) 100 mg DAILY PO 05/19/25 15:15 05/20/25 11:18 Sertraline HCl (Zoloft) 100 mg DAILY PO 05/19/25 15:15 05/20/25 12:02 DC 05/20/25 11:17 EZETIMIBE (Zetia) 10 mg DAILY PO 05/20/25 10:00 05/20/25 11:18 Losartan Potassium (Cozaar Tablet) 25 mg DAILY PO 05/20/25 10:00 05/20/25 11:18 Pantoprazole Sodium (Protonix) 40 mg DAILY IV 05/20/25 10:00 05/20/25 11:17 Aspirin 81 mg DAILY PO 05/20/25 10:00 05/20/25 11:17 Atorvastatin Calcium (Lipitor) 40 mg HS PO 05/19/25 22:00 05/19/25 21:48 Sertraline HCl (Zoloft) 100 mg BID PO 05/20/25 22:00 Vital Signs Vital Signs Date Time Temp Pulse Resp B/P (MAP) Pulse Ox O2 Delivery O2 Flow Rate FiO2 05/20/25 12:52 98.1 59 16 132/86 (101) 98 98.1 05/19/25 20:48 Room Air* 0 21 Physical Exam Pt is lying on bed General Appearance: Alert, Oriented X3, Cooperative, Not in acute distress HEENT: Atraumatic, Mucous membranes moist/pink Respiratory: Clear to auscultation, Normal air movement, No added sounds Cardiovascular: Regular rate, Normal S1, Normal S2, No murmurs Abdominal: Active bowel sounds, Soft, no distention, no tenderness Extremities: No edema, Normal pulses, No tenderness/swelling Skin: No Significant rash, except past surgical scars Neuro: Normal speech, sensorimotor deficits none Psych/Mental Status: Mental status NL, Mood NL Nurse was there as rn observation during examination Labs/Diagnostic Data Labs Test 05/20/25 05:09 05/19/25 17:57 05/19/25 13:01 05/19/25 10:22 Range/Units White Blood Count 4.7 4.4-10.8 10^3/uL Red Blood Count 4.36 4.0-5.20 10^6/uL Hemoglobin 13.1 12.2-16.2 g/dL Hematocrit 38.7 36.0-46.0 % Mean Corpuscular Volume 88.7 80.0-100.0 fL Mean Corpuscular Hemoglobin 30.0 28.0-32.0 pg Mean Corpuscular Hemoglobin Concent 33.8 32.0-36.0 g/dL Red Cell Distribution Width 12.9 11.8-14.3 % Platelet Count 243 140-450 10^3/uL Mean Platelet Volume 8.4 6.9-10.8 fL Neutrophils (%) (Auto) 46.5 37.0-80.0 % Lymphocytes (%) (Auto) 43.3 10.0-50.0 % Monocytes (%) (Auto) 8.1 0.0-12.0 % Eosinophils (%) (Auto) 1.1 0.0-7.0 % Basophils (%) (Auto) 1.0 0.0-2.0 % Neutrophils # (Auto) 2.2 1.6-8.6 10 ^3/uL Lymphocytes # (Auto) 2.0 0.4-5.4 10 ^3/uL Monocytes # (Auto) 0.4 0-1.3 10 ^3/uL Eosinophils # (Auto) 0.1 0-0.8 10 ^3/uL Basophils # (Auto) 0 0-0.2 10 ^3/uL Nucleated Red Blood Cells 0.1 % Sodium Level 149 #H 136-145 mmol/L Potassium Level 4.0 3.5-5.1 mmol/L Chloride Level 109 H 98-107 mmol/L Carbon Dioxide Level 29 20-31 mmol/L Anion Gap 11 5-15 Blood Urea Nitrogen 14 9-23 mg/dL Creatinine 0.94 0.550-1.02 mg/dL Glomerular Filtration Rate Calc 66 >90 mL/min BUN/Creatinine Ratio 14.9 10.0-20.0 Serum Glucose 85 74-106 mg/dL Calcium Level 9.4 8.7-10.4 mg/dL Total Bilirubin 0.3 0.2-1.0 mg/dL Aspartate Amino Transferase (AST) 22 13-40 U/L Alanine Aminotransferase (ALT) 28 7-40 U/L Alkaline Phosphatase 92 46-116 U/L Total Protein 6.6 5.7-8.2 g/dL Albumin 4.2 3.2-4.8 g/dL Triglycerides Level 163 H < 150 mg/dL Cholesterol Level 152 < 200 mg/dL LDL Cholesterol 72 < 100 mg/dL HDL Cholesterol 59 40-59 mg/dL Influenza Type A Antigen Negative Negative Influenza Type B Antigen Negative Negative SARS-CoV-2 Antigen (Rapid) Negative NEGATIVE Direct Bilirubin 0.1 <0.3 mg/dL Troponin I High Sensitivity 4 </=34 ng/L C-Reactive Protein High Sensitivity 0.26 <1.0 mg/dL Test 05/19/25 09:20 Range/Units Erythrocyte Sedimentation Rate 4 0-20 mm/hr B-Type Natriuretic Peptide 33.61 0-100 pg/mL Assessment Chest pain rule out ACS Rule out progressive CAD HX of [place] status post 1 DIEGO Hypertensive crisis Dyslipidemia Plan/ recommendations We will continue with the following plan/recommendations (Dr. Morales): Echocardiogram to evaluate cardiac function Chest pain protocol HEART score: 5 points (Moderate score) Continue dual antiplatelet therapy Lipid lowering agent BP control Due to patient's given risk factors and symptoms we will schedule a inpatient stress test in next available appointment Rest of management as per primary team Case discussed with the Dr. Morales Plan discussed with: Patient Date of Service: May 20, 2025 Billing Provider: HARJIT MORALES Sr., MD Common Visit Codes: [id number] CARE 30-74 MIN DAVID ARELLANO RESIDENT May 20, 2025 13:52
[2025-05-20] MEDS: SERTRALINE HCL 50 MG TAB PO SCH (22:32)
[2025-05-21 01:00] VITALS: BP 131/85; PULSE 63; RESP 18; TEMP 97.9; O2SAT 93
[2025-05-21] MEDS: ACETAMINOPHEN 325 MG TAB PO PRN (04:32)
[2025-05-21 05:00] VITALS: BP 138/80; PULSE 60; RESP 17; TEMP 97.8; O2SAT 92
[2025-05-21 08:00] VITALS: PULSE 59
[2025-05-21 08:56] VITALS: BP 141/88; PULSE 56; RESP 16; TEMP 97.5; O2SAT 96
[2025-05-21] MEDS: REGADENOSON 0.4 MG/5 ML SYRG IV ONE ×2 (09:32→09:52)
--- NOTE | 2025-05-21 11:41 | DVHPN2 ---
Progress Note Date Seen: May 21, 2025 Resident Creating Document: DAVDI ARELLANO RESIDENT Medical Necessity Reason Pt with a Central, PICC or Fol: No Subjective Review of Systems Patient seen and examined at the bedside. Patient is having chest pain but improved since admission. Objective vital signs Vital Sign Date Time Temp Pulse Resp B/P (MAP) Pulse Ox O2 Delivery O2 Flow Rate FiO2 05/21/25 08:56 97.5 56 16 141/88 (105) 96 97.5 05/20/25 20:00 Room Air* 0 21 Total Intake and Output 05/20/25 05/20/25 05/21/25 14:59 22:59 06:59 Intake Total 1000 ml 100 ml Balance 1000 ml 100 ml medications Current Medications Medications Dose Ordered Sig/Ping Route Start Time Stop Time Status Last Admin Dose Admin Sodium Chloride 1,000 ml @ 60 mls/hr [id number] IV 05/19/25 14:45 Temazepam 15 mg QHSP PRN PO 05/19/25 14:45 Ondansetron HCl 4 mg Q4HP PRN IV 05/19/25 14:45 Docusate Sodium 100 mg BIDPRN PRN PO 05/19/25 14:45 Acetaminophen 650 mg Q6HP PRN PO 05/19/25 14:45 05/21/25 04:32 650 MG Morphine Sulfate 2 mg Q4HPRN PRN IV 05/19/25 14:45 Enoxaparin Sodium 40 mg DAILY SC 05/19/25 14:45 05/20/25 11:19 40 MG Nitroglycerin 0.4 mg Q5MINP PRN SL 05/19/25 14:45 Morphine Sulfate 2 mg Q30M PRN IV 05/19/25 14:45 Bupropion HCl 100 mg DAILY PO 05/19/25 15:15 05/20/25 11:18 100 MG EZETIMIBE 10 mg DAILY PO 05/20/25 10:00 05/20/25 11:18 10 MG Losartan Potassium 25 mg DAILY PO 05/20/25 10:00 05/20/25 11:18 25 MG Pantoprazole Sodium 40 mg DAILY IV 05/20/25 10:00 05/20/25 11:17 40 MG Aspirin 81 mg DAILY PO 05/20/25 10:00 05/20/25 11:17 81 MG Atorvastatin Calcium 40 mg HS PO 05/19/25 22:00 05/20/25 22:32 40 MG Sertraline HCl 100 mg BID PO 05/20/25 22:00 05/20/25 22:32 100 MG Examination Pt is lying on bed General Appearance: Alert, Oriented X3, Cooperative, Not in acute distress HEENT: Atraumatic, Mucous membranes moist/pink Respiratory: Clear to auscultation, Normal air movement, No added sounds Cardiovascular: Regular rate, Normal S1, Normal S2, No murmurs Abdominal: Active bowel sounds, Soft, no distention, no tenderness Extremities: No edema, Normal pulses, No tenderness/swelling Skin: No Significant rash, except past surgical scars Neuro: Normal speech, sensorimotor deficits none Psych/Mental Status: Mental status NL, Mood NL Nurse was there as venetian blind machine operator during examination laboratory and microbiology Laboratory Tests 05/20/25 05:09 Test 05/20/25 05:09 Range/Units Serum Glucose 85 74-106 mg/dL Labs and/or images reviewed: Labs reviewed by me, Image(s) reviewed by me Problem List/Assessment/Plan Problem List/Assessment/Plan Chest pain rule out ACS Rule out progressive CAD HX of [place] status post 1 DIEGO Hypertensive crisis Dyslipidemia Plan/ recommendations We will continue with the following plan/recommendations (Dr. Guerrero): Echocardiogram to evaluate cardiac function Chest pain protocol HEART score: 5 points (Moderate score) Continue dual antiplatelet therapy Lipid lowering agent BP control Due to patient's given risk factors and symptoms we will schedule a inpatient stress test in next available appointment Rest of management as per primary team Case discussed with the Dr. Guerrero Plan discussed with: Patient My Orders My Orders Orders - DAVID ARELLANO Procedure Category Date Status Time Cardiolite Multiple NM 05/20/25 Logged 13:49 Npo After Midnight LEXX 05/20/25 In Process 16:11 Npo (Nothing By DIET 05/21/25 Transmitted Mouth) Diet Breakfast Date of Service: May 21, 2025 Billing Provider: HARJIT GUERRERO Sr., MD Common Visit Codes: [id number] CARE 30-74 MIN DAVID ARELLANO May 21, 2025 11:41
--- NOTE | 2025-05-21 12:10 | DVHSR ---
APPROVED REPORT Exam: Nuclear Stress Test BMI: 0 Stress Test Details HR Max Heart Rate (APMHR): 152.612252 bpm Target HR (85% APMHR): 129.228114 bpm BP ECG Stress ECG Conclusion lvef 68% normal perfusion scan no ischemia NM EXAM: Myocardial Perfusion REST/STRESS Imaging Protocol: Rest Tc-99m/Stress Tc-99m 2 days Resting Data Rest SPECT myocardial perfusion imaging was performed in supine position 60 minutes following the intravenous injection of 9.3 mCi of Tc-99m Sestamibi. Time of rest injection: 14:15 Date: 05/20/2025 Time of rest imagin:15 Date: 05/20/2025 Administration Route: IV Administration Site: Right Arm Pharmacologic Stress Pharmacologic stress test was performed by injecting Regadenoson 0.4 mg IV push followed by the intravenous injection of 22.0 mCi of Tc-99m Sestamibi. Time of stress injection: 09:55 Date: 05/21/2025 Time of stress imagin:55 Date: 05/21/2025 Administration Route: IV Administration Site: Right Arm Gated Stress SPECT was performed 60 minutes after stress injection. The images were gated to evaluate regional wall motion and calculate left ventricular ejection fraction. Stress only was performed in the Supine position. Nuclear Conclusion Nuclear Findings: negative for ischemia lvef 68% normal perfusion scan no ischemia
[2025-05-21 12:41] VITALS: BP 149/96; PULSE 67; RESP 15; TEMP 97.6; O2SAT 94
--- NOTE | 2025-05-21 12:47 | DVHPN2 ---
Reviewed: Care Plan, H&P, Labs, Medications, Previous Orders, Radiology Changes from previous H/P or p: No Changes Eyes: No Pain, No Vision change, No Conjunctivae inflammation, No Eyelid inflammation, No Other, No Redness ENT: No Ear pain, No Ear discharge, No Nose pain, No Nose discharge, No Nose congestion, No Mouth pain, No Mouth swelling, No Throat pain, No Throat swelling, No Other Cardiovascular: Chest Pain Respiratory: No Cough, No Dry, No Shortness of breath, No SOB with excertion, No Wheezing, No Hemoptysis, No Pleuritic Pain, No Sputum, No Other Gastrointestinal: No Nausea, No Vomiting, No Abdominal Pain, No Diarrhea, No Constipation, No Melena, No Hematochezia, No Other Musculoskeletal: No other, No neck pain, No shoulder pain, No arm pain, No back pain, No hand pain, No leg pain, No foot pain Skin: No Rash, No Lesions, No Jaundice, No Bruising, No Other Objective Vitals Vital Signs Date Time Temp Pulse Resp B/P (MAP) Pulse Ox O2 Delivery O2 Flow Rate FiO2 05/21/25 08:56 97.5 56 16 141/88 (105) 96 97.5 05/21/25 08:00 Room Air* 0 21 Intake/Output Intake and Output 05/21/25 07:00 Intake Total 1100 ml Balance 1100 ml Intake Oral 1100 ml # Voids 5 Medications Current Medications Medications Dose Ordered Sig/Ping Route Start Time Stop Time Status Last Admin Dose Admin Sodium Chloride 1,000 ml @ 60 mls/hr [id number] IV 05/19/25 14:45 Temazepam 15 mg QHSP PRN PO 05/19/25 14:45 Ondansetron HCl 4 mg Q4HP PRN IV 05/19/25 14:45 Docusate Sodium 100 mg BIDPRN PRN PO 05/19/25 14:45 Acetaminophen 650 mg Q6HP PRN PO 05/19/25 14:45 05/21/25 04:32 650 MG Morphine Sulfate 2 mg Q4HPRN PRN IV 05/19/25 14:45 Enoxaparin Sodium 40 mg DAILY SC 05/19/25 14:45 05/21/25 11:38 40 MG Nitroglycerin 0.4 mg Q5MINP PRN SL 05/19/25 14:45 Morphine Sulfate 2 mg Q30M PRN IV 05/19/25 14:45 Bupropion HCl 100 mg DAILY PO 05/19/25 15:15 05/21/25 11:38 100 MG EZETIMIBE 10 mg DAILY PO 05/20/25 10:00 05/20/25 11:18 10 MG Losartan Potassium 25 mg DAILY PO 05/20/25 10:00 05/20/25 11:18 25 MG Pantoprazole Sodium 40 mg DAILY IV 05/20/25 10:00 05/21/25 11:37 40 MG Aspirin 81 mg DAILY PO 05/20/25 10:00 05/21/25 11:39 81 MG Atorvastatin Calcium 40 mg HS PO 05/19/25 22:00 05/20/25 22:32 40 MG Sertraline HCl 100 mg BID PO 05/20/25 22:00 05/21/25 11:38 100 MG Laboratory Results Laboratory Tests 05/20/25 05:09 Labs and/or images reviewed: Labs reviewed by me, Image(s) reviewed by me Assessment/Plan Assessment/Plan Noncardiac chest pain troponin negative x3, treatment per ACS protocol, cardiology consult, Cardiolite stress test neg Uncontrolled hypertension History of coronary artery disease with a [place] in 2009 with a stenting of proximal RCA Hypercholesterolemia Anxiety Depression History of Smoking for 10 years 35 years ago Patient is requesting to be discharged home ALESSANDRA Mendosa present at bedside Plan discussed with: Patient My Orders Orders - SANDRA MALONE MD Procedure Category Date Status Time * Cardiology Consult CONS 05/20/25 Transmitted 13:06 Date of Service: May 21, 2025 Billing Provider: SANDRA MALONE MD Common Visit Codes: [id number] INP/OBS CARE(HIGH) SANDRA MALONE MD May 21, 2025 12:47
--- NOTE | 2025-05-21 12:51 | DVHDS2 ---
Discharge Summary Date of Admission May 19, 2025 at 14:43 Date of Discharge: May 21, 2025 Admitting Diagnosis Chest pain Wounds: None Labs/Diagnostic Data: Laboratory Results Test 05/20/25 05:09 05/19/25 17:57 05/19/25 13:01 05/19/25 10:22 White Blood Count 4.7 10^3/uL (4.4-10.8) Red Blood Count 4.36 10^6/uL (4.0-5.20) Hemoglobin 13.1 g/dL (12.2-16.2) Hematocrit 38.7 % (36.0-46.0) Mean Corpuscular Volume 88.7 fL (80.0-100.0) Mean Corpuscular Hemoglobin 30.0 pg (28.0-32.0) Mean Corpuscular Hemoglobin Concent 33.8 g/dL (32.0-36.0) Red Cell Distribution Width 12.9 % (11.8-14.3) Platelet Count 243 10^3/uL (140-450) Mean Platelet Volume 8.4 fL (6.9-10.8) Neutrophils (%) (Auto) 46.5 % (37.0-80.0) Lymphocytes (%) (Auto) 43.3 % (10.0-50.0) Monocytes (%) (Auto) 8.1 % (0.0-12.0) Eosinophils (%) (Auto) 1.1 % (0.0-7.0) Basophils (%) (Auto) 1.0 % (0.0-2.0) Neutrophils # (Auto) 2.2 10 ^3/uL (1.6-8.6) Lymphocytes # (Auto) 2.0 10 ^3/uL (0.4-5.4) Monocytes # (Auto) 0.4 10 ^3/uL (0-1.3) Eosinophils # (Auto) 0.1 10 ^3/uL (0-0.8) Basophils # (Auto) 0 10 ^3/uL (0-0.2) Nucleated Red Blood Cells 0.1 % Sodium Level 149 mmol/L (136-145) Potassium Level 4.0 mmol/L (3.5-5.1) Chloride Level 109 mmol/L (98-107) Carbon Dioxide Level 29 mmol/L (20-31) Anion Gap 11 (5-15) Blood Urea Nitrogen 14 mg/dL (9-23) Creatinine 0.94 mg/dL (0.550-1.02) Glomerular Filtration Rate Calc 66 mL/min (>90) BUN/Creatinine Ratio 14.9 (10.0-20.0) Serum Glucose 85 mg/dL (74-106) Calcium Level 9.4 mg/dL (8.7-10.4) Total Bilirubin 0.3 mg/dL (0.2-1.0) Aspartate Amino Transferase (AST) 22 U/L (13-40) Alanine Aminotransferase (ALT) 28 U/L (7-40) Alkaline Phosphatase 92 U/L (46-116) Total Protein 6.6 g/dL (5.7-8.2) Albumin 4.2 g/dL (3.2-4.8) Triglycerides Level 163 mg/dL (< 150) Cholesterol Level 152 mg/dL (< 200) LDL Cholesterol 72 mg/dL (< 100) HDL Cholesterol 59 mg/dL (40-59) Influenza Type A Antigen Negative (Negative) Influenza Type B Antigen Negative (Negative) SARS-CoV-2 Antigen (Rapid) Negative (NEGATIVE) Direct Bilirubin 0.1 mg/dL (<0.3) Troponin I High Sensitivity 4 ng/L (</=34) C-Reactive Protein High Sensitivity 0.26 mg/dL (<1.0) Test 05/19/25 09:20 Erythrocyte Sedimentation Rate 4 mm/hr (0-20) B-Type Natriuretic Peptide 33.61 pg/mL (0-100) Other Laboratory Tests 05/20/25 05:09 Brief Hx & Hospital Course: DVT ruled out female with a history of depression hypercholesterolemia anxiety history of smoking in the past history of coronary artery disease with stents in 2009 hypotension came in complaining of chest pain troponin negative x3 blood pressure was high controlled with the medications seen by cardiology Dr. Guerrero. Cardiolite stress test negative. Patient is requesting to be discharged home ALESSANDRA Mendosa advised to call cardiology and discharge the patient if cleared by Cardiology Consults/Reason for consult Cardiology Dr. Guerrero Operations or Procedures Cardiolite stress test Condition at Discharge: Fair Final Diagnosis/Problems List Noncardiac chest pain troponin negative x3, treatment per ACS protocol, cardiology consult, Cardiolite stress test neg Uncontrolled hypertension History of coronary artery disease with a [place] in 2009 with a stenting of proximal RCA Hypercholesterolemia Anxiety Depression History of Smoking for 10 years 35 years ago Discharge Disposition: Home Discharge Instruct/Medications Diet: Cardiac 2g Na,low cholest Activity: Light activity Follow Up/Referral: Follow up with your primary Dr Arthur Resume all your previous home medications Medications: none Scheduled Bupropion Hcl (Wellbutrin Sr), 1 TAB PO BID, (Reported) Ezetimibe (Zetia), 1 TAB PO DAILY, (Reported) Losartan Potassium (Losartan Potassium), 25 MG PO DAILY, (Reported) Sertraline Hcl (Sertraline Hcl), 50 MG PO DAILY, (Reported) Miscellaneous Medications Aspirin (Aspirin), 81 MG PO, (Reported) 35 (Time taken for discharge summary 35 minutes) Discharge Statement: "Patient was advised to return to the ER or call 911 if any headaches, dizziness, shortness of breath, chest pain, abdominal pain, bleeding, fevers, or worsening of medical condition. Patient was counseled about treatment plan, medications, possible side effects, patientverbalized understanding. All questions were answered to the best of my ability. This discharge took greater then 30 minutes in planning, reviewing documentation, counseling the patient, and discussing with other team members." ASSESSMENT ASSESSMENT Hospital Course Improved Assessment Noncardiac chest pain troponin negative x3, treatment per ACS protocol, cardiology consult, Cardiolite stress test neg Uncontrolled hypertension History of coronary artery disease with a [place] in 2009 with a stenting of proximal RCA Hypercholesterolemia Anxiety Depression History of Smoking for 10 years 35 years ago Date of Service: May 21, 2025 Billing Provider: SANDRA MALONE MD Common Visit Codes: [id number] DISCH DAY >30min SANDRA MALONE MD May 21, 2025 12:51
--- NOTE | 2025-05-22 14:38 | DVHSR ---
APPROVED REPORT EXAM: Two-dimensional and M-mode echocardiogram with Doppler and color Doppler. Blood Pressure: 137/80 mmHg INDICATION rule out structural heat disease RISK FACTORS Height: 66, Weight: 160 DIMENSIONS LVDd 4.3 (3.8-5.7cm) LA (2D) 3.2 (1.9-4.0cm) Aortic Root 3.7 (2.0-3.7cm) LVDs 2.9 (2.5-4.0cm) LA (MM) (1.9-4.0cm) Aortic Cusp Exc 1.7 (1.5-2.0cm) EF (%) 60.0 (55-70%) Rt. Atrium (1.9-4.0cm) Asc. Aorta 4.4 cm IVSd 0.9 (0.7-1.1cm) RV (D) 5.2 (1.8-2.4cm) PWd 1.1 (0.7-1.1cm) Mitral Valve Mitral Mitral Stenosis E wave 0.76m/s MV Mean GR. mmHg A wave 0.83m/s MV Peak GR. mmHg E/A ratio 0.9 2D MVA cm2 DECEL Time 327ms PRESS 1/2 Time ms Aortic Valve Aortic Valve Aortic Stenosis V1 0.72m/s AO Mean GR. 3mmHg V2 1.16m/s AO Peak GR. 5mmHg LVOT Diameter 2.1 (1.8-2.4cm) Doppler [place] 2.15cm2 Pulmonic Valve V2 0.67m/s Tricuspid Valve TR Velocity 2.15m/s RVSP 18mmHg Other Information Technically limited study due to large breast impants Conclusion Sinus rhythm. Aortic root enlargement. Dilation of the sinuses of Valsalva. Valves are normal. EF of 60% with normal RV function. Dopplers unremarkable. Mild TR. No pericardial effusion masses or vegetations.
== END 2025-05-21 16:24 | disposition home or self-care (01) | DRG 206 ==
LOC: ER 09:08 → OVERFLOW 14:43 → TELE-WESTW 22:05
PROVIDERS: ADMIT Family Medicine; ATTEND Family Medicine
DX: M94.0 Chondrocostal junction syndrome [Tietze] (principal); I16.9 Hypertensive crisis, unspecified; F32.A Depression, unspecified; I25.110 Atherosclerotic heart disease of native coronary artery with unstable angina pectoris; I10 Essential (primary) hypertension; Z20.822 Contact with and (suspected) exposure to COVID-19; E78.00 Pure hypercholesterolemia, unspecified; F41.9 Anxiety disorder, unspecified; Z87.891 Personal history of nicotine dependence; Z88.2 Allergy status to sulfonamides; Z91.040 Latex allergy status; I25.2 Old myocardial infarction; Z95.5 Presence of coronary angioplasty implant and graft
CPT/HCPCS: 36415; 71045; 78452; 80048; 80053; 80061; 80076; 83880; 84484; 85025; 85652; 86141; 87426; 87804; 93005; 93017; 93306; G0378; J2470